=== PATIENT | female | born 1990 | race Caucasian/White ===

== ENCOUNTER 2018-03-03 08:09 | Outpatient (CLI) ==
--- NOTE | 2018-03-03 09:27 | US ---
EXAM: Limited abdominal ultrasound. History: Right upper quadrant abdominal pain. Technique: Multiple sonographic images through the abdomen were obtained. Color duplex Doppler was used to interrogate vascular flow. Findings: The liver is not enlarged. Visualized pancreas demonstrates no gross abnormality. No abdominal asci shellie. No focal liver lesions identified sonographically. There is antegrade flow within the main por kaylynn vein. No shadowing gallstones. Gallbladder wall is not thickened. Common bile duct measures 0. 3 cm in caliber. Limited visualization of the right kidney demonstrates no evidence for hydronephros is. Impression: Unremarkable exam
== END 2018-03-03 08:10 | disposition home or self-care (01) ==
LOC: RAD 08:09
PROVIDERS: ATTEND Nurse Practitioner Family
DX: R10.11 Right upper quadrant pain (principal)